=== PATIENT | male | born 1950 | race Two or more races ===

== ENCOUNTER 2020-04-21 14:26 | Inpatient (IN) | payer OTHER ==
[~2020-04-21] VITALS: Ht 172.7 cm; Wt 95.3 kg
[2020-04-21] MEDS ORDERED: AZITHROMYCIN 500MG/ 250ML 250 ML IV ONE (14:30)
[2020-04-21] MEDS ORDERED: REMDESIVIR PER PHARMACY 0 ML IV SCH (14:30)
[2020-04-21] MEDS ORDERED: methylPREDNISolone SOD SUCC 125 MG/2 ML VL IV ONE (14:30)
[2020-04-21 16:28] LABS: Basophils # (auto) 0 10 ^3/uL (0-0.2); Basophils % (auto) 0.1 % (0.0-2.0); Eosinophils # (auto) 0 10 ^3/uL (0-0.8); Hematocrit 42.1 % (41.0-53.0); Hemoglobin 13.9 g/dL (13.5-17.5); Lymphocytes # (auto) 0.9 10 ^3/uL (0.4-5.4); Mean Corpuscular Hemoglobin 30.2 pg (28.0-32.0); Mean Corpuscular Volume 91.6 fL (80.0-100.0); Monocytes # (auto) 0.3 10 ^3/uL (0-1.3); Monocytes % (auto) 3.1 % (0.0-12.0); Neutrophils % (auto) 88.8 % (37.0-80.0); Platelet Count (auto) 237 10^3/uL (140-450); Red Cell Distribution Width 13.1 % (11.8-14.3); White Blood Cell 11.3 10^3/uL (4.4-10.8)
[2020-04-21 16:48] LABS: Albumin 2.4 g/dL (3.4-5.0); Anion Gap 8 (5-15); Blood Urea Nitrogen 37 mg/dL (7-18); Calcium 8.4 mg/dL (8.5-10.1); Carbon Dioxide 22 mmol/L (21-32); Chloride 106 mmol/L (98-107); Glucose 145 mg/dL (74-106); Potassium 4.3 mmol/L (3.5-5.1); Sodium 136 mmol/L (136-145)
[2020-04-21 16:57] LABS: Alanine Aminotransferase 44 U/L (16-61); Alkaline Phosphatase 82 U/L (45-117); Aspartate Aminotransferase 79 U/L (15-37); BUN/Creatinine Ratio 16.2; Bilirubin, Total 0.5 mg/dL (0.2-1.0); GFR African American 36 mL/min; GFR Non-African American 30 mL/min; Lactic Acid w/Reflex 2.1 mmol/L (0.4-2.0); Total Protein 7.6 g/dL (6.4-8.2)
[2020-04-21 17:17] LABS: CRP High Sensitivity > 19.0 mg/dL (< 0.3)
[2020-04-21 19:10] VITALS: BP 119/65
[2020-04-21 19:10] LABS: Urine Amorphous Crystal FEW /hpf (None Seen); Urine Bacteria NONE SEEN /hpf (None Seen); Urine Blood Negative /uL (Negative); Urine Mucus FEW (None Seen); Urine Specific Gravity 1.022 (1.001-1.035); Urine WBC 3 /hpf (0 - 3)
[2020-04-21] MEDS ORDERED: ONDANSETRON HCL 4 MG/2 ML VIAL IV PRN (19:45)
[2020-04-21] MEDS ORDERED: ACETAMINOPHEN 500 MG TAB PO PRN (19:45)
[2020-04-21] MEDS ORDERED: HYDROcodone-ACET 5/325MG TAB PO PRN (19:45)
[2020-04-21] MEDS ORDERED: NITROGLYCERIN 0.4 MG SL TAB SL PRN (19:45)
[2020-04-21] MEDS ORDERED: MORPHINE SULF INJ 2 MG/ML SYRINGE 1ML IV PRN ×2 (19:45)
[2020-04-21] MEDS ORDERED: ALBUTEROL SULF HFA 90MCG INH 200DOSE IN PRN (19:45)
[2020-04-21] MEDS: cefTRIAXone 1GM/50ML D5W 50 ML IV SCH (20:00)
[2020-04-21] MEDS: ENOXAPARIN SOD 40 MG/0.4 ML SYRINGE SC SCH (21:26)
[2020-04-21] MEDS: BUDESONIDE (INHALATION) 180 MCG IH IN SCH (22:00)
[2020-04-21 22:22] VITALS: BP 121/63
[2020-04-22 02:24] VITALS: BP 112/64
[2020-04-22 05:35] LABS: Basophils # (auto) 0 10 ^3/uL (0-0.2); Basophils % (auto) 0.1 % (0.0-2.0); Eosinophils # (auto) 0 10 ^3/uL (0-0.8); Hematocrit 40.3 % (41.0-53.0); Hemoglobin 13.3 g/dL (13.5-17.5); Lymphocytes # (auto) 0.7 10 ^3/uL (0.4-5.4); Lymphocytes % (auto) 5.6 % (10.0-50.0); Mean Corpuscular Hemoglobin 30.2 pg (28.0-32.0); Mean Corpuscular Volume 91.4 fL (80.0-100.0); Monocytes # (auto) 0.3 10 ^3/uL (0-1.3); Monocytes % (auto) 2.9 % (0.0-12.0); Neutrophils # (auto) 10.9 10 ^3/uL (1.6-8.6); Neutrophils % (auto) 91.4 % (37.0-80.0); Platelet Count (auto) 246 10^3/uL (140-450); Red Blood Cells 4.41 10^6/uL (4.5-5.90); Red Cell Distribution Width 13.1 % (11.8-14.3); White Blood Cell 11.9 10^3/uL (4.4-10.8)
[2020-04-22 05:46] LABS: Albumin 2.2 g/dL (3.4-5.0); Calcium 8.7 mg/dL (8.5-10.1); Potassium 4.2 mmol/L (3.5-5.1)
[2020-04-22 05:50] LABS: BUN/Creatinine Ratio 20.6; Bilirubin, Total 0.4 mg/dL (0.2-1.0); Total Protein 7.3 g/dL (6.4-8.2)
[2020-04-22 06:11] VITALS: BP 124/61
[2020-04-22] MEDS: BUDESONIDE (INHALATION) 180 MCG IH IN SCH ×2 (06:11→22:00)
--- NOTE | 2020-04-22 06:11 | NUR ---
Respiratory note: PT SEEN, NO MDI'S AT BEDSIDE AT THIS TIME. WILL CALL PHARMACY.
[2020-04-22] MEDS: cefTRIAXone 1GM/50ML D5W 50 ML IV SCH (08:48)
[2020-04-22 10:11] VITALS: BP 114/67
[2020-04-22] MEDS: ZINC SULFATE 220mg CAP or TAB PO SCH (10:41)
[2020-04-22] MEDS: DexAMETHasone SOD PHOS 10MG/1ML VIAL INJ IV SCH (10:41)
[2020-04-22] MEDS: ENOXAPARIN SOD 40 MG/0.4 ML SYRINGE SC SCH (10:41)
[2020-04-22] MEDS: AZITHROMYCIN 500MG/D5WorNS 250ml IV SCH (10:41)
[2020-04-22] MEDS: CHOLECALCIFEROL (VITD3) 2,000 UNIT CAP PO SCH (10:41)
[2020-04-22] MEDS: ASCORBIC ACID 1,000 MG TAB PO SCH (10:41)
[2020-04-22] MEDS: FAMOTIDINE 20 MG TAB PO SCH (10:41)
[2020-04-22] MEDS ORDERED: SODIUM CHLORIDE 0.9% 1,000 ML IV SCH (11:00)
[2020-04-22] MEDS ORDERED: DEXTROSE (50%) 50ML SYRG IV PRN (11:45)
[2020-04-22] MEDS ORDERED: FUROSEMIDE 40 MG/4 ML VIAL IV ONE (11:45)
[2020-04-22] MEDS ORDERED: SODIUM CHLORIDE 0.9% 1,000 ML IV ONE (11:45)
[2020-04-22] MEDS ORDERED: ENOXAPARIN SOD 60 MG/0.6 ML SYRINGE SC ONE (11:45)
[2020-04-22] MEDS: PIPERACILLIN-TAZOB 2.25GM 50 ML IV SCH ×2 (12:17→18:24)
--- NOTE | 2020-04-22 13:27 | NUR ---
1300 04/22/20 - Faxed to [facility] at [phone] face sheet, order to transfer to [facility] facility via critical care protocol to a FLOYD bed, H/P, labs, meds, transfer summary. Pending review and bed availability.
--- NOTE | 2020-04-22 13:30 | NUR ---
Respiratory note: TRIED TAKING PATIENT OFF BIPAP AND PLACED ON NRB 15L. PATIENT DID NOT TOLERATE WELL. SPO2 DROPPED TO 77%. RN AT BEDSIDE. PLACED PT BACK ON BIPAP AND INCREASED FIO2 TO 100% AT THIS TIME.
[2020-04-22 14:06] VITALS: BP 134/64
--- NOTE | 2020-04-22 15:46 | NUR ---
1535 04/22/20 - Contacted [facility] at [phone] requesting authorization for inpatient stay and update on pending transfer to [facility] facility. Spoke with programmer analyst who stated [facility] facilities all [facility] are not accepting any transfers at this time. She also stated authorization for today was pending. harvest manager still reviewing clinicals. Notice regarding Post stabilization faxed to [facility] at [phone] and scanned into [employer].
[2020-04-22] MEDS: InsuLIN REG 1unit/0.01ml Soln (100units/ml) SC SCH ×2 (17:59→22:00)
[2020-04-22] MEDS: ACCU-CHEK COMFORT CURVE STRIP VI SCH ×2 (18:00→22:00)
[2020-04-22 18:15] VITALS: BP 114/55
--- NOTE | 2020-04-22 22:19 | NUR ---
Respiratory note: PT REFUSED MDI TX AT THIS TIME. PT ADVISED TO HAVE RT CALLED FOR ANY RESPIRATORY DISTRESS.
[2020-04-23] VITALS (7 sets, daily range): BP systolic 116–156; BP diastolic 46–75
[2020-04-23] MEDS: PIPERACILLIN-TAZOB 2.25GM 50 ML IV SCH ×4 (00:10→18:50)
[2020-04-23 06:22] LABS: Basophils # (auto) 0 10 ^3/uL (0-0.2); Basophils % (auto) 0.1 % (0.0-2.0); Eosinophils # (auto) 0 10 ^3/uL (0-0.8); Hemoglobin 13.4 g/dL (13.5-17.5); Lymphocytes # (auto) 0.4 10 ^3/uL (0.4-5.4); Lymphocytes % (auto) 3.1 % (10.0-50.0); Mean Corpuscular Hemoglobin 30.4 pg (28.0-32.0); Mean Corpuscular Hgb Conc. 32.6 g/dL (32.0-36.0); Mean Corpuscular Volume 93.1 fL (80.0-100.0); Monocytes # (auto) 0.4 10 ^3/uL (0-1.3); Monocytes % (auto) 2.7 % (0.0-12.0); Neutrophils # (auto) 12.9 10 ^3/uL (1.6-8.6); Neutrophils % (auto) 94.1 % (37.0-80.0); Nucleated Red Blood Cells % 0.1 %; Platelet Count (auto) 280 10^3/uL (140-450); Red Cell Distribution Width 13.6 % (11.8-14.3); White Blood Cell 13.8 10^3/uL (4.4-10.8)
[2020-04-23 06:41] LABS: Lactic Acid w/Reflex 2.8 mmol/L (0.4-2.0)
[2020-04-23 06:42] LABS: INR 0.97 (0.9-1.15)
[2020-04-23 06:45] LABS: Potassium 4.6 mmol/L (3.5-5.1)
[2020-04-23] MEDS: BUDESONIDE (INHALATION) 180 MCG IH IN SCH ×2 (07:15→21:50)
[2020-04-23 08:25] LABS: Albumin 2.1 g/dL (3.4-5.0); Bilirubin, Total 0.7 mg/dL (0.2-1.0); Calcium 8.6 mg/dL (8.5-10.1); Total Protein 7.5 g/dL (6.4-8.2)
[2020-04-23 08:26] LABS: Magnesium 3.4 mg/dL (1.6-2.6)
[2020-04-23] MEDS: InsuLIN REG 1unit/0.01ml Soln (100units/ml) SC SCH ×4 (08:42→22:00)
[2020-04-23] MEDS: ACCU-CHEK COMFORT CURVE STRIP VI SCH ×3 (08:42→17:25)
[2020-04-23] MEDS: ZINC SULFATE 220mg CAP or TAB PO SCH (10:00)
[2020-04-23] MEDS: FAMOTIDINE 20 MG TAB PO SCH (10:00)
[2020-04-23] MEDS: ASCORBIC ACID 1,000 MG TAB PO SCH (10:00)
[2020-04-23] MEDS ORDERED: ENOXAPARIN SOD 100 MG/1 ML SYRINGE SC SCH ×2 (10:00→22:00)
[2020-04-23] MEDS: AZITHROMYCIN 500MG/D5WorNS 250ml IV SCH (10:00)
[2020-04-23] MEDS: CHOLECALCIFEROL (VITD3) 2,000 UNIT CAP PO SCH (10:00)
[2020-04-23] MEDS: DexAMETHasone SOD PHOS 10MG/1ML VIAL INJ IV SCH (12:27)
--- NOTE | 2020-04-23 13:55 | NUR ---
1200 04/23/20 - Faxed to [facility] at [phone] face sheet, order to transfer to [facility] facility via critical care protocol to a FLOYD bed, H/P, labs, meds, transfer summary. Pending review and bed availability.
--- NOTE | 2020-04-23 14:51 | NUR ---
1428 04/23/20 - Contacted [facility] at [phone] regardng authorization for continued inpatient stay and update on pending transfer to [facility]. spoke with marketing research analyst Jarett who stated current authorization [id number] has been extended for continued inpatient stay until 04/24/20 at 1000AM. In regards to pending transfer, all [facility] facilities are on hold for transfers at this time.
[2020-04-23] MEDS ORDERED: REMDESIVIR 200 MG in NS 210ml LOADING DOSE ADULT IV ONE (15:00)
[2020-04-24] VITALS: BP 128/66
[2020-04-24 01:39] VITALS: BP 132/60
[2020-04-24] MEDS: ACCU-CHEK COMFORT CURVE STRIP VI SCH (01:43)
[2020-04-24] MEDS: PIPERACILLIN-TAZOB 2.25GM 50 ML IV SCH (02:07)
[2020-04-24 02:19] VITALS: BP 129/63
[2020-04-24 04:09] VITALS: BP 129/63
[2020-04-24] MEDS ORDERED: LORazepam 2MG/ML-1ML VIAL ONE (04:52)
[2020-04-24] MEDS ORDERED: LORazepam 2MG/ML-1ML VIAL IV PRN (05:00)
[2020-04-24] MEDS ORDERED: ETOMIDATE (2MG/ML) 20ML VIAL IV ONE ×2 (05:16→05:30)
[2020-04-24] MEDS ORDERED: SUCCINYLCHOLINE CHLORIDE 20 MG/ML 10ML VIAL IV ONE ×2 (05:17→05:30)
[2020-04-24 05:30] VITALS: BP 142/72
[2020-04-24] MEDS ORDERED: MIDAZOLAM DRIP 50 mg/50mL 50 ML IV SCH (05:30)
[2020-04-24 06:12] LABS: Albumin 2.3 g/dL (3.4-5.0); Calcium 8.7 mg/dL (8.5-10.1); Potassium 4.2 mmol/L (3.5-5.1)
[2020-04-24] MEDS ORDERED: SODIUM BICARBONATE 8.4% INJ 50ML SYRINGE ONE (06:14)
[2020-04-24] MEDS ORDERED: EPINEPHrine HCL 1 MG/10 ML SYRG ONE (06:14)
[2020-04-24 06:18] LABS: BUN/Creatinine Ratio 30.2; Bilirubin, Total 0.7 mg/dL (0.2-1.0); Total Protein 7.7 g/dL (6.4-8.2)
[2020-04-24] MEDS ORDERED: REMDESIVIR 100 MG in SODIUM CHL 0.9% 250 ML IV SCH (15:00)
[2020-04-24] MEDS ORDERED: PIPERACILLIN-TAZOB 3.375GM 100 ML IV SCH (18:00)
== END 2020-04-24 06:19 | disposition expired | DRG 871 ==
LOC: EDBD 14:26 → EDUNIT# 14:26 → ER 14:26 → OVERFLOW 14:27
PROVIDERS: ADMIT Nurse Practitioner Acute Care; ATTEND Internal Medicine
PROC: XW033E5 Introduction of Remdesivir Anti-infective into Peripheral Vein, Percutaneous Approach, New Technology Group 5 (ICD-10-PCS; 2020-04-21)
PROC: 5A09457 Assistance with Respiratory Ventilation, 24-96 Consecutive Hours, Continuous Positive Airway Pressure (ICD-10-PCS; 2020-04-21)
PROC: XW13325 Transfusion of Convalescent Plasma (Nonautologous) into Peripheral Vein, Percutaneous Approach, New Technology Group 5 (ICD-10-PCS; 2020-04-23)
PROC: 5A12012 Performance of Cardiac Output, Single, Manual (ICD-10-PCS; principal; 2020-04-24)
DX: A41.89 Other specified sepsis (principal); U07.1 COVID-19; J96.01 Acute respiratory failure with hypoxia; J12.89 Other viral pneumonia; N17.0 Acute kidney failure with tubular necrosis; D68.59 Other primary thrombophilia; E66.01 Morbid (severe) obesity due to excess calories; N18.30 Chronic kidney disease, stage 3 unspecified; E88.09 Other disorders of plasma-protein metabolism, not elsewhere classified; E11.22 Type 2 diabetes mellitus with diabetic chronic kidney disease; R65.20 Severe sepsis without septic shock; Z87.442 Personal history of urinary calculi; Z87.891 Personal history of nicotine dependence; Z68.31 Body mass index [BMI] 31.0-31.9, adult
CPT/HCPCS: 36415; 36600; 71045; 80053; 80061; 81001; 82306; 82728; 82805; 82962; 83036; 83605; 83735; 83880; 84443; 85025; 85379; 85610; 86141; 86850; 86900; 86901; 87040; 87426; 87804; 92950; 93970; 94640; 94660; G0378; J0330; J0696; J1100; J2250; J2543